=== PATIENT | male | born 1960 | race Caucasian/White ===

== ENCOUNTER 2017-05-31 11:07 | Outpatient (CLI) | END 2017-05-31 11:08 | disposition short-term general hospital (02) | LOC: AMBL 11:07 | PROVIDERS: ATTEND Internal Medicine | DX: G30.9 Alzheimer's disease, unspecified (principal); F02.80 Dementia in other diseases classified elsewhere, unspecified severity, without behavioral disturbance, psychotic disturbance, mood disturbance, and anxiety ==

== ENCOUNTER 2017-06-23 16:48 | Outpatient (CLI) | END 2017-06-23 16:49 | disposition short-term general hospital (02) | LOC: AMBL 16:48 | PROVIDERS: ATTEND Internal Medicine | DX: R41.82 Altered mental status, unspecified (principal); R52 Pain, unspecified; R53.1 Weakness; G30.0 Alzheimer's disease with early onset; F02.80 Dementia in other diseases classified elsewhere, unspecified severity, without behavioral disturbance, psychotic disturbance, mood disturbance, and anxiety; S09.90XA Unspecified injury of head, initial encounter; W19.XXXA Unspecified fall, initial encounter ==